=== PATIENT | female | born 1990 | race Caucasian/White ===

== ENCOUNTER 2024-07-24 08:15 | Day surgery (SDC) | payer MEDICARE ==
[2024-07-23 10:35] VITALS: BMI 27.3
[2024-07-24] MEDS: IV FLUID CONTINUATION 1,000 ML IV ONE (08:44)
[2024-07-24 08:45] VITALS: TEMP 97.1
[2024-07-24] MEDS: LACTATED RINGERS 1,000 ML IV SCH (08:55)
[2024-07-24 08:57] LABS: Glucose,Whole Blood 85 mg/dL (70-110)
[2024-07-24] MEDS ORDERED: LIDOCAINE 2% (PF) 20 MG/ML 5 ML VIAL ONE (09:20)
[2024-07-24] MEDS ORDERED: PROPOFOL 10 MG/ML 20 ML VIAL IV ONE (09:20)
--- NOTE | 2024-07-24 09:37 | P.PCN ---
Date of Procedure: 07/24/24 Procedure(s) Performed: Brief history: Patient is a pleasant 34-year-old white female scheduled for an elective upper endoscopy as well as colonoscopy as a part of evaluation of abdominal pain, intermittent dysphagia to solids and change in bowel habits for the last 7 years duration Procedure performed: Esophagogastroduodenoscopy with biopsy Colonoscopy with snare polypectomy Preoperative diagnosis: Abdominal pain/intermittent dysphagia to solids Change in bowel habits Anesthesia: MAC Procedure: After informed consent was obtained from the patient was brought into the endoscopy unit and IV sedation was administered by anesthesia under continuous monitoring. Initially upper endoscopy was done. The Olympus GF 160 video endoscope was inserted inserted into the mouth and esophagus intubated without any difficulty and was gradually advanced into the stomach and duodenum and carefully examined. The bulb and second part of the duodenum appeared normal. Biopsies were done from the duodenum to rule out celiac disease. The scope was then withdrawn into the stomach adequately insufflated with air and upon careful examination the antrum had mild gastritis and biopsies were done from this area. Mucosa of the body, cardia and fundus appeared normal. The scope was then withdrawn into the esophagus. Small hiatal hernia noted. The GE junction was located at 40 cm to the incisors. It appeared regular with 2 superficial erosions consistent with LA grade B reflux esophagitis.. Rest of the esophagus appeared normal. Patient tolerated the procedure well. At this time the patient continued to remain sedation. Initial digital rectal examination was normal. Olympus CF 160 video colonoscope was then inserted into the rectum and gradually advanced to the cecum without any difficulty. Careful examination was performed as the scope was gradually being withdrawn. The prep was excellent. Terminal ileum was intubated and 20 cm visualized and appeared normal. The cecum, ascending colon, transverse colon, descending colon, appeared normal. The sigmoid colon there was a 5 mm polyp that was removed by cold snare polypectomy. Rest of sigmoid colon and rectum appeared normal. Retroflexion was performed in the rectum and no lesions were noted. Patient tolerated the procedure well. Impression: 1. Upper endoscopy revealed mild antral gastritis, small hiatal hernia and LA grade B reflux esophagitis 2. Colonoscopy revealed 5 mm sigmoid colon polyp status post cold snare nasreen ypectomy Recommendations: Findings of this examination were discussed with the patient as well as her family. She was advised to follow-up with the biopsy results. Follow-up in the office in 2 weeks. If the biopsy reveals adenoma she can have repeat colonoscopy in 5 years.
[2024-07-24 09:58] VITALS: BP 142/78; PULSE 78; RESP 18
== END 2024-07-24 10:10 | disposition home or self-care (01) ==
LOC: ORWHC2ENDO 08:15
PROVIDERS: ATTEND Internal Medicine Gastroenterology
DX: K29.50 Unspecified chronic gastritis without bleeding (principal); K63.5 Polyp of colon; K44.9 Diaphragmatic hernia without obstruction or gangrene; K21.00 Gastro-esophageal reflux disease with esophagitis, without bleeding; F41.9 Anxiety disorder, unspecified; F32.A Depression, unspecified; L23.1 Allergic contact dermatitis due to adhesives; Z90.09 Acquired absence of other part of head and neck; Z88.8 Allergy status to other drugs, medicaments and biological substances; Z79.899 Other long term (current) drug therapy
CPT/HCPCS: 81025; 45385; 43239; J2704; J2003; 88305; 88342